=== PATIENT | female | born 1955 | race Caucasian/White ===

== ENCOUNTER 2020-03-25 10:44 | Observation (INO) ==
[2020-03-25] MEDS ORDERED: ASPIRIN CHEW 324 MG PO STA (11:06)
--- NOTE | 2020-03-25 11:17 | XRay Report ---
XR chest 1V portable HISTORY: Atypical Chest Pain COMPARISON: None. FINDINGS: The heart is mildly enlarged. No pneumothorax. Small bilateral pleural effusions. Bibasilar linear densities. No evidence for pulmonary edema. IMPRESSION: 1. Mild cardiomegaly. 2. Small bilateral pleural effusions. 3. Bibasilar linear densities. These are nonspecific but favor atelectasis. ACT 112: Negative or not required by law. Electronically signed by: Heladio Wyatt M.D. 03/25/2020 11:16 AM
[2020-03-25 11:27] LABS: Basophils # (auto) 0.01 K/uL (0-0.2); Basophils % (auto) 0.1 %; Eosinophils # (auto) 0.03 K/uL (0-0.5); Eosinophils % (auto) 0.4 %; Hematocrit (blood only) 34.3 % (37-47); Hemoglobin 11.3 g/dL (12.0-16.0); Immature Granulocytes # (auto) 0.06 K/uL (0.00-0.02); Immature Granulocytes % (auto) 0.9 %; Lymphocytes # (auto) 0.82 K/uL (1.2-3.4); Lymphocytes % (auto) 11.7 %; Mean Corpuscular Hemoglobin 31.8 pg (25-34); Mean Corpuscular Hgb Conc 32.9 g/dL (32-36); Mean Corpuscular Volume 96.6 fL (80-100); Mean Platelet Volume 9.5 fL (7.4-10.4); Monocytes # (auto) 0.73 K/uL (0.11-0.59); Monocytes % (auto) 10.4 %; Neutrophils # (auto) 5.37 K/uL (1.4-6.5); Neutrophils % (auto) 76.5 %; Platelet Count 476 K/uL (130-400); RDW Coefficient of Variation 13.2 % (11.5-14.5); RDW Standard Deviation 46.4 fL (36.4-46.3); Red Blood Count 3.55 M/uL (4.2-5.4); White Blood Count 7.02 K/uL (4.8-10.8)
[2020-03-25 11:37] LABS: Alanine Aminotransferase 44 U/L (12-78); Albumin Level 2.7 gm/dl (3.4-5.0); Aspartate Aminotransferase 24 U/L (15-37); BUN Creatinine Ratio 14.8 (10-20); Blood Urea Nitrogen 13 mg/dl (7-18); Calcium 9.1 mg/dl (8.5-10.1); Carbon Dioxide 23 mmol/L (21-32); Chloride 106 mmol/L (98-107); Creatinine Clr Calc Pharmacy 68.9 ml/min; Est GFR (African American) 78.9; Glucose 116 mg/dl (70-99); Lipase 171 U/L (73-393); Sodium 138 mmol/L (136-145)
[2020-03-25 11:42] LABS: Albumin Globulin Ratio 0.5 (0.9-2); Alkaline Phosphatase 239 U/L (45-117); Bilirubin,Total 0.4 mg/dl (0.2-1); INR 1.1 (0.9-1.1); Partial Thromboplastin Ratio 1.3; Partial Thromboplastin Time 35.3 Seconds (21.0-31.0); Prothrombin Time 11.3 Seconds (9.0-12.0); Total Protein 7.7 gm/dl (6.4-8.2); Troponin I < 0.015 ng/ml (0-0.045)
[2020-03-25] MEDS ORDERED: OPTIRAY 320 125ml IV PRN (11:58)
--- NOTE | 2020-03-25 12:12 | CT Scan Report ---
CT ANGIOGRAM OF THE CHEST CLINICAL HISTORY: Atypical chest pain. COMPARISON STUDY: Chest x-ray dated 03/25/2020. TECHNIQUE: Following the IV administration of 119 cc of Optiray 320, CT angiogram of the chest was pe rformed from the upper abdomen to the thoracic inlet utilizing the pulmonary embolus protocol. Images are reviewed in the axial, sagittal, and coronal planes. 3-D MIPS images are created and assessed. I V contrast was administered without complication. A dose lowering technique was utilized adhering to the principles of ALARA. CT DOSE: 406.76 mGycm FINDINGS: Thyroid: The right lobe of the thyroid is surgically absent. The left lobe appears mildly enlarged an d heterogeneous. Thoracic aorta: The thoracic aorta is normal in caliber and demonstrates standard 3-vessel arch anato my. No dissection is seen. Pulmonary vasculature: The pulmonary trunk is normal in caliber. There are no filling defects identif ied in main, lobar, or segmental pulmonary branches to suggest pulmonary embolus. Heart: The heart is enlarged noting a moderate pericardial effusion. Lungs and pleural spaces: Evaluation of the lung parenchyma is degraded by motion artifact. There are small right and moderate left pleural effusions with associated bibasilar consolidation. Segmental a telectasis is noted in the lingula. The trachea and central airways are clear. Mediastinum: There are calcified subcarinal nodes. No mediastinal adenopathy is identified. Edith: Clear. Axillae: There is no axillary lymphadenopathy. Upper abdomen: There is a small hiatal hernia. A calcified granuloma is seen in the spleen. Partially visualized upper abdominal viscera is otherwise grossly unremarkable. Skeletal structures: The skeletal structures are osteopenic. No lytic or blastic bony lesions are see n. Soft tissues: Postoperative change is noted in the right breast. IMPRESSION: 1. There is no evidence of pulmonary embolus in the main, lobar, or segmental pulmonary arteries. 2. Cardiomegaly and moderate pericardial effusion. 3. There are moderate left and small right pleural effusions with associated bibasilar consolidation. This likely represents atelectasis and clinical correlation will be required. 4. Additional findings as above. ACT 112: Negative or not required by law. Electronically signed by: Aguilar Mosquera M.D. 03/25/2020 12:11 PM
--- NOTE | 2020-03-25 12:43 | Electrocardiogram Report ---
Test Reason : Blood Pressure : / mmHG Vent. Rate : 093 BPM Atrial Rate : 093 BPM P-R Int : 124 ms QRS Dur : 080 ms QT Int : 328 ms P-R-T Axes : 031 082 020 degrees QTc Int : 407 ms Normal sinus rhythm Nonspecific T wave abnormality Inferior leads Abnormal ECG No previous ECGs available Confirmed by Jaspreet Denney ([id number]) on 03/25/2020 12:43:12 PM Referred By: Marcelo Cuellar Confirmed By:Jaspreet Denney
--- NOTE | 2020-03-25 13:51 | History & Physical Report ---
Date of Service March 25, 2020 Assessment & Plan (1) Chest pain: 64-year-old female with past medical history breast cancer presents by way of PCP referral for concerns of abnormal EKG seen as an outpatient, now here for chest pain rule out. Chest pain Admit to telemetry -CTA: There is no evidence of pulmonary embolus in the main, lobar, or segmental pulmonary arteries. Cardiomegaly and moderate pericardial effusion -EKG on arrival shows normal sinus rhythm, nonspecific T wave abnormality Inferior leads. Repeat daily Troponin on admission negative, will trend every 6 hours x2 Findings of less concern for ACS Morphine and nitroglycerin ordered as needed chest pain. Zofran as needed for nausea Echo ordered A1c and fasting lipid panel in a.m. Patient aspirin initiated in the ED. Continue 81 mg daily. Can calculate need for statin based on patient's ASCVD score after a.m. labs result Symptoms could resemble GERD, will start patient on p.o. Protonix 40 mg twice daily Pericardial effusion on CT scan - Check echo. - likely from radiation. check pain likely etiology from this. Cardiology consult Breast cancer -Patient recently completed 2-week course of radiation ending March 05, 2020 -Continue anastrozole 1 mg daily -Follows with Dr. Rouse of oncology FEN/GI: Heart healthy diet DVT prophylaxis: Lovenox SQ Full code Disposal: Admitted to telemetry. Likely discharge tomorrow History of Present Illness Chief Complaint: cp Primary Care Provider: Marcelo Cuellar DO 64-year-old female with past medical history breast cancer presents by way of PCP referral for concerns of abnormal EKG seen earlier today. Patient with no significant cardiac history and no significant family history of cardiac issues. Patient recently completed radiation therapy for breast cancer on March 05, 2020. The next day to March 06, 2020 she performed outdoor yard work and housework without issue. Early next morning around 2:30 AM patient woke up with midsternal chest pain. This episode described as sharp, nonradiating. 10 out of 10 pain. No known exacerbating or alleviating factors. No previous such occurrence like this ever before. At that time patient with associated nausea and fatigue, but otherwise denied any palpitations, diaphoresis, edema, syncope or near syncope, fever, vomiting, diarrhea, chills, cough, abdominal pain, lightheadedness/dizziness, urinary symptoms, recent travel or prolonged immobility, sick contacts. Since that incident patient notes feeling of ongoing pressure/burning sensation, but denies similar pain. Patient had noticed some shortness of breath with activities such as climbing stairs which is unusual for her. As result patient went to see PCP for the symptoms. EKG was obtained as an outpatient and noted to have T wave inversions on V4 and V5. Patient was sent to ER for further evaluation. At the time of my visit patient denies any chest pain. Patient with no other acute concerns or complaints. Pertinent labs: Largely unremarkable hemoglobin 11.3, PTT 35.3, glucose 116, alk phos 239, albumin 2.7, initial troponin negative EKG: Normal sinus rhythm. Nonspecific T wave abnormality Inferior leads CXR: Mild cardiomegaly. Small bilateral pleural effusions. Bibasilar linear densities. These are nonspecific but favor atelectasis. CTA: There is no evidence of pulmonary embolus in the main, lobar, or segmental pulmonary arteries. Cardiomegaly and moderate pericardial effusion. There are moderate left and small right pleural effusions with associated bibasilar consolidation. This likely represents atelectasis and clinical correlation will be required. ER course: P.o. aspirin 324 mg Family history: No significant cardiac history Social history: Patient denies any tobacco, alcohol, illicit drug use Allergies Allergy/AdvReac Type Severity Reaction Status Date / Time No Known Allergies Allergy Unverified 03/25/20 11:20 Home Medications Home Medications Medication Instructions Recorded Confirmed Type acetaminophen [Tylenol Extra 500 mg PO Q6H PRN 03/25/20 03/25/20 History Strength] anastrozole 1 mg PO DAILY 03/25/20 03/25/20 History colchicine [Colcrys] 0.6 mg PO QAM 14 Days #14 tab 03/26/20 Rx Past Med/Surg History Medical History Breast cancer No pertinent family history Surgical History H/O lumpectomy Social History Preferred Language: Japanese Communication Ability: 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 Beliefs That Will Affect Care: None Current Living Situation: Spouse Other Information That Helps Us Care for You: No Feels Safe at Home: Yes Safety Concerns: Feels Safe At This Time Smoking Status: Never smoker Do You Dip or Chew Tobacco: No ; Second Hand Exposure: No ; Tobacco Cessation Education Requested by Patient: No Hx Alcohol Use: No Hx Substance Use: No Review of Systems Review of Systems: All systems reviewed & are unremarkable except as noted in HPI & below Physical Exam Constitutional: WD/WN, vitals as above Eyes: PERRL, conjunctivae normal, anicteric sclerae ENMT: external ear and nose normal, oropharynx normal Respiratory: normal respiratory effort, lungs clear to auscultation Cardiovascular: RRR, no murmur, no edema Gastrointestinal (Abdomen): normal bowel sounds, soft, nontender, no hepatosplenomegaly Skin: no rashes, warm and dry Psychiatric: A+Ox3, euthymic affect Results & Data Results & Data ([facility]) Vital Signs (Past 12 Hours) Vital Signs Temp Pulse Pulse Resp BP BP Pulse Ox 03/25/20 13:30 83 18 150/87 H 97 03/25/20 12:24 78 18 151/96 H 98 03/25/20 11:30 86 22 149/79 H 96 03/25/20 11:00 98 H 18 159/90 H 96 03/25/20 10:55 36.8 C 96 H 17 188/98 H 98 Laboratory Results Laboratory Results - last 24 hr 03/25/20 03/25/20 03/25/20 11:05 11:05 11:05 WBC 7.02 RBC 3.55 L Hgb 11.3 L Hct 34.3 L MCV 96.6 MCH 31.8 MCHC 32.9 RDW Std Deviation 46.4 H RDW Coeff of Germain 13.2 Plt Count 476 H MPV 9.5 Immature Gran % (Auto) 0.9 Neut % (Auto) 76.5 Lymph % (Auto) 11.7 [place] % (Auto) 10.4 Eos % (Auto) 0.4 Baso % (Auto) 0.1 Neut # (Auto) 5.37 Lymph # (Auto) 0.82 L [place] # (Auto) 0.73 H Eos # (Auto) 0.03 Baso # (Auto) 0.01 Immature Gran # (Auto) 0.06 H PT 11.3 INR 1.1 APTT 35.3 H PTT Ratio 1.3 Sodium 138 Potassium 4.0 Chloride 106 Carbon Dioxide 23 Anion Gap 9.0 BUN 13 Creatinine 0.90 Est Cr Clr Drug Dosing 68.9 Est GFR ( Amer) 78.9 Est GFR (Non-Af Amer) 68.0 BUN/Creatinine Ratio 14.8 Glucose 116 H Calcium 9.1 Total Bilirubin 0.4 AST 24 ALT 44 Alkaline Phosphatase 239 H Troponin I < 0.015 Total Protein 7.7 Albumin 2.7 L Globulin 5.0 H Albumin/Globulin Ratio 0.5 L Lipase 171 Medications Administered Current Inpatient Medications Ioversol (Optiray 320 125ml) 119 ml IV ONCE PRN PRN Reason: Interaction Checking Stop: 03/29/20 11:57 Last Admin: 03/25/20 11:58 Dose: 119 ml Documented by: Code Status & VTE Plan Code Status Full Supervising Physician Co-Signing Physician Notes Resident Physician Supervision Note: I independently interviewed and examined the patient and verified the carcamo history and physical, reviewed labs and image studies, discussed the case with the resident Dr. Jessica and agree with the findings and care plan. Resident Activity Tracking Resident Involvement: Resident Care Provided Care Provided: Adult Hospital Medicine
--- NOTE | 2020-03-25 14:35 | Emergency Department Note ---
History of Present Illness General Chief Complaint: Cardiac Assessment Stated Complaint: EKG WAS ABNORMAL Time Seen by Provider: 03/25/20 10:53 History of Present Illness Provider Complaint: chest pain Onset (ago): day(s) 2 Duration: intermittent Onset: during rest Pain Location: substernal Pain Radiation: none Severity: mild Current Pain Intensity: 0 Quality: + dull and + other (Pressure) Relieved By: + nothing Exacerbated By: + nothing Context: no recent illness, no recent surgery, no recent immobilization, no recent travel, no trauma/injury and no history of DVT/PE Associated symptoms: + dyspnea; no diaphoresis, no syncope, no palpitations, no fever, no cough and no leg swelling 54-year-old female presented with chest pain or shortness of breath. Patient does have a history of breast cancer and did get radiation therapy. She states she recently stopped taking her estrogen therapy for her breast cancer. Patient reports she went to her PCPs office who sent her to the emergency department for an abnormal EKG. Home Medications Home Medications Medication Instructions Recorded Confirmed Type acetaminophen [Tylenol Extra 500 mg PO Q6H PRN 03/25/20 03/25/20 History Strength] anastrozole 1 mg PO DAILY 03/25/20 03/25/20 History Allergies Allergy/AdvReac Type Severity Reaction Status Date / Time No Known Allergies Allergy Unverified 03/25/20 11:20 Past Med/Surg History Medical History (Updated 03/25/20 @ 14:35 by Gurpreet Damon) Breast cancer No pertinent family history Surgical History (Updated 03/25/20 @ 14:31 by Gurpreet Damon) H/O lumpectomy Social History Preferred Language: Tunisian Communication Ability: Effective Hotel 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 Beliefs That Will Affect Care: None Current Living Situation: Spouse Other Information That Helps Us Care for You: No Feels Safe at Home: Yes Safety Concerns: Feels Safe At This Time Smoking Status: Never smoker Do You Dip or Chew Tobacco: No ; Second Hand Exposure: No ; Tobacco Cessation Education Requested by Patient: No Hx Alcohol Use: No Hx Substance Use: No Review of Systems A total of 10 systems reviewed and were otherwise negative Physical Exam Vital Signs Vital Signs - 24 hr 03/25/20 10:55 03/25/20 11:00 03/25/20 11:30 Temperature 36.8 C Temperature Source Oral Pulse Rate 96 H 98 H 86 Pulse Rate [Apical] Pulse Rate from SpO2 Sensor 86 Pulse Rhythm Regular Pulse Rhythm [Apical] Pulse Strength [Apical] Respiratory Rate 17 18 22 Respiratory Effort / Characteristics Non-Labored Spontaneous Respiratory Depth Normal Respiratory Pattern Regular Blood Pressure 188/98 H 159/90 H 149/79 H Blood Pressure [Left Arm] Blood Pressure Mean 124 118 105 Blood Pressure Mean [Left Arm] Pulse Oximetry 98 96 96 Oxygen Delivery Method Room Air Sepsis Recent Fever Within 48 Hours No Sepsis New/Unexplained Change in Mental Status No Sepsis Action Taken by Nursing No Action Required 03/25/20 12:24 03/25/20 13:30 Temperature Temperature Source Pulse Rate Pulse Rate [Apical] 78 83 Pulse Rate from SpO2 Sensor Pulse Rhythm Pulse Rhythm [Apical] Regular Regular Pulse Strength [Apical] Normal Respiratory Rate 18 18 Respiratory Effort / Characteristics Non-Labored Spontaneous Non-Labored Spontaneous Respiratory Depth Normal Normal Respiratory Pattern Regular Regular Blood Pressure Blood Pressure [Left Arm] 151/96 H 150/87 H Blood Pressure Mean Blood Pressure Mean [Left Arm] 114 108 Pulse Oximetry 98 97 Oxygen Delivery Method Room Air Room Air Sepsis Recent Fever Within 48 Hours Sepsis New/Unexplained Change in Mental Status Sepsis Action Taken by Nursing Physical Exam GENERAL: She is oriented to person, place, and time. She appears well-developed and well-nourished. She does not appear distressed. HENT: Exam performed. -Head: Normocephalic and atraumatic. -Right Ear: External ear normal. No mastoid tenderness. -Left Ear: External ear normal. No mastoid tenderness. -Mouth/Throat: The oropharynx is clear and moist. No trismus in the jaw. No dental abscesses or uvula swelling. No oropharyngeal exudate or tonsillar abscesses. EYES: Conjunctivae and EOM are normal. Pupils are equal, round, and reactive to light. Right eye exhibits no discharge. Left eye exhibits no discharge. No scleral icterus. NECK: Normal range of motion. Neck supple. No JVD present. No spinous process tenderness present. No carotid bruit present. No rigidity. No tracheal deviation and normal range of motion present. No Brudzinski's sign and no Kernig's sign noted. CV: Normal rate, regular rhythm, normal heart sounds and intact distal pulses. There is no peripheral edema. Palpable radial pulses bue. PULM/CHEST: Effort normal and breath sounds normal. No respiratory distress. No stridor. She has no wheezes. She has no rales. -Chest Wall: She exhibits no tenderness. ABD: The abdomen is soft. Bowel sounds are normal. She has no distension. No mass is present. There is no tenderness. There is no rebound, no guarding, no Mu rphy's sign and no tenderness at McBurney's point. Rovsig negative MUSC/SKEL: Normal range of motion. There is no peripheral edema, tenderness or deformity. LYMPH: No cervical adenopathy. NEURO: She is alert and oriented to person, place, and time. She has normal strength. No cranial nerve deficit or sensory deficit. Coordination and gait normal. GCS eye subscore is 4. GCS verbal subscore is 5. GCS motor subscore is 6. Cerebellar tests wnl. SKIN: Skin is warm and dry. She is not diaphoretic. PSYCH: She has a normal mood and affect. Behavior is normal. Judgment and thought content normal. Course Course 1100: The patient was evaluated in room B3. A complete history and physical exam was performed. Cardiac monitoring: An order was placed for continuous cardiac monitoring. The monitor shows a rate of 90 with sinus rhythm 1300: Vital signs stable. Labs and imaging within normal limits. Imaging does show small pericardial effusion, this is thought to be due to the patient's radiation therapy for breast cancer. Patient was offered inpatient observation versus outpatient follow-up for chest pain, patient elected to have inpatient observation for rule out ACS. [facility] team was consulted and agreed to the admission. Administered Medications Ioversol (Optiray 320 125ml) 119 ml IV ONCE PRN PRN Reason: Interaction Checking Stop: 03/29/20 11:57 Last Admin: 03/25/20 11:58 Dose: 119 ml Documented by: [id number] Discontinued Medications Aspirin (Aspirin) 324 mg PO NOW STA Stop: 03/25/20 11:07 Last Admin: 03/25/20 11:16 Dose: 324 mg Documented by: [id number] Medical Decision Making Laboratory Data Result diagrams: 03/25/20 11:05 03/25/20 11:05 Labs: Lab Results 03/25/20 03/25/20 03/25/20 Range/Units 11:05 11:05 11:05 WBC 7.02 (4.8-10.8) K/uL RBC 3.55 L (4.2-5.4) M/uL Hgb 11.3 L (12.0-16.0) g/dL Hct 34.3 L (37-47) % MCV 96.6 (80-100) fL MCH 31.8 (25-34) pg MCHC 32.9 (32-36) g/dL RDW Std Deviation 46.4 H (36.4-46.3) fL RDW Coeff of Germain 13.2 (11.5-14.5) % Plt Count 476 H (130-400) K/uL MPV 9.5 (7.4-10.4) fL Immature Gran % (Auto) 0.9 % Neut % (Auto) 76.5 % Lymph % (Auto) 11.7 % [place] % (Auto) 10.4 % Eos % (Auto) 0.4 % Baso % (Auto) 0.1 % Neut # (Auto) 5.37 (1.4-6.5) K/uL Lymph # (Auto) 0.82 L (1.2-3.4) K/uL [place] # (Auto) 0.73 H (0.11-0.59) K/uL Eos # (Auto) 0.03 (0-0.5) K/uL Baso # (Auto) 0.01 (0-0.2) K/uL Immature Gran # (Auto) 0.06 H (0.00-0.02) K/uL PT 11.3 (9.0-12.0) Seconds INR 1.1 (0.9-1.1) APTT 35.3 H (21.0-31.0) Seconds PTT Ratio 1.3 Sodium 138 (136-145) mmol/L Potassium 4.0 (3.5-5.1) mmol/L Chloride 106 (98-107) mmol/L Carbon Dioxide 23 (21-32) mmol/L Anion Gap 9.0 (3-11) BUN 13 (7-18) mg/dl Creatinine 0.90 (0.6-1.2) mg/dl Est Cr Clr Drug Dosing 68.9 ml/min Est GFR ( Amer) 78.9 Est GFR (Non-Af Amer) 68.0 BUN/Creatinine Ratio 14.8 (10-20) Glucose 116 H (70-99) mg/dl Calcium 9.1 (8.5-10.1) mg/dl Total Bilirubin 0.4 (0.2-1) mg/dl AST 24 (15-37) U/L ALT 44 (12-78) U/L Alkaline Phosphatase 239 H (45-117) U/L Troponin I < 0.015 (0-0.045) ng/ml Total Protein 7.7 (6.4-8.2) gm/dl Albumin 2.7 L (3.4-5.0) gm/dl Globulin 5.0 H (2.5-4.0) gm/dl Albumin/Globulin Ratio 0.5 L (0.9-2) Lipase 171 (73-393) U/L Imaging Data CT scan - chest: Radiologist's impression: CT ANGIOGRAM OF THE CHEST CLINICAL HISTORY: Atypical chest pain. COMPARISON STUDY: Chest x-ray dated 03/25/2020. TECHNIQUE: Following the IV administration of 119 cc of Optiray 320, CT angiogram of the chest was performed from the upper abdomen to the thoracic inlet utilizing the pulmonary embolus protocol. Images are reviewed in the axial, sagittal, and coronal planes. 3-D MIPS images are created and assessed. IV contrast was administered without complication. A dose lowering technique was utilized adhering to the principles of ALARA. CT DOSE: 406.76 mGycm FINDINGS: Thyroid: The right lobe of the thyroid is surgically absent. The left lobe appea rs mildly enlarged and heterogeneous. Thoracic aorta: The thoracic aorta is normal in caliber and demonstrates standard 3-vessel arch anatomy. No dissection is seen. Pulmonary vasculature: The pulmonary trunk is normal in caliber. There are no filling defects identified in main, lobar, or segmental pulmonary branches to suggest pulmonary embolus. Heart: The heart is enlarged noting a moderate pericardial effusion. Lungs and pleural spaces: Evaluation of the lung parenchyma is degraded by mot ion artifact. There are small right and moderate left pleural effusions with associated bibasilar consolidation. Segmental atelectasis is noted in the lingula. The trachea and central airways are clear. Mediastinum: There are calcified subcarinal nodes. No mediastinal adenopathy is identified. Edith: Clear. Axillae: There is no axillary lymphadenopathy. Upper abdomen: There is a small hiatal hernia. A calcified granuloma is seen in the spleen. Partially visualized upper abdominal viscera is otherwise grossly unremarkable. Skeletal structures: The skeletal structures are osteopenic. No lytic or blastic bony lesions are seen. Soft tissues: Postoperative change is noted in the right breast. IMPRESSION: 1. There is no evidence of pulmonary embolus in the main, lobar, or segmental pulmonary arteries. 2. Cardiomegaly and moderate pericardial effusion. 3. There are moderate left and small right pleural effusions with associated bibasilar consolidation. This likely represents atelectasis and clinical correlation will be required. 4. Additional findings as above. ACT 112: Negative or not required by law. Electronically signed by: Aguilar Mosquera M.D. 03/25/2020 12:11 PM Dictated: 03/25/20 1205 Transcribed: 03/25/201204 Chest x-ray: Radiologist's impression: XR chest 1V portable HISTORY: Atypical Chest Pain COMPARISON: None. FINDINGS: The heart is mildly enlarged. No pneumothorax. Small bilateral pleural effusions. Bibasilar linear densities. No evidence for pulmonary edema. IMPRESSION: 1. Mild cardiomegaly. 2. Small bilateral pleural effusions. 3. Bibasilar linear densities. These are nonspecific but favor atelectasis. ACT 112: Negative or not required by law. Electronically signed by: Heladio Wyatt M.D. 03/25/2020 11:16 AM Dictated: 03/25/20 1114 Transcribed: 03/25/20 1114 ECG Data Indication: chest pain Rate (beats per minute): 93 Rhythm: normal sinus Findings: no ST depression, no T-wave inversion and no ST elevation MDM Narrative 1100: The patient was evaluated in room B3. A complete history and physical exam was performed. Cardiac monitoring: An order was placed for continuous cardiac monitoring. The monitor shows a rate of 90 with sinus rhythm 1300: Vital signs stable. Labs and imaging within normal limits. Imaging does show small pericardial effusion, this is thought to be due to the patient's radiation therapy for breast cancer. Patient was offered inpatient observation versus outpatient follow-up for chest pain, patient elected to have inpatient observation for rule out ACS. [facility] hospitalist team was consulted and agreed to the admission. Impression & Plan Chest pain Discharge Plan Visit Data Chief Complaint: Cardiac Assessment Stated Complaint: EKG WAS ABNORMAL ED Provider: Gurpreet Damon Discharge Problem: Chest pain Patient Disposition: Being Evaluated by Hospitalist Forms Stand Alone Forms: My [facility] Prescriptions Prescriptions: No Action anastrozole 1 mg tablet 1 mg PO DAILY RF: 0 acetaminophen [Tylenol Extra Strength] 500 mg Tablet 500 mg PO Q6H PRN (Reason: Pain) RF: 0 Referrals Referrals: Marcelo Cuellar DO [Primary Care Provider] -
--- NOTE | 2020-03-25 16:07 | XCELERA ---
[id number]
[2020-03-25] MEDS ORDERED: ONDANSETRON INJ 2 MG/ML 2 ML VIAL IV PRN (16:32)
[2020-03-25] MEDS ORDERED: NITROGLYCERIN SL 0.4 MG/TAB TAB SL PRN (16:32)
[2020-03-25] MEDS ORDERED: MoRPHine SULFATE 2 MG/ML CARP IV PRN (16:32)
[2020-03-25] MEDS ORDERED: MAGNESIUM HYDROXIDE SUSP 30 ML UDC PO PRN (16:32)
[2020-03-25] MEDS: PANTOprazole 40 MG TAB PO SCH ×2 (17:30→21:16)
[2020-03-26 06:42] LABS: Basophils # (auto) 0.02 K/uL (0-0.2); Basophils % (auto) 0.3 %; Eosinophils # (auto) 0.09 K/uL (0-0.5); Eosinophils % (auto) 1.3 %; Hematocrit (blood only) 34.7 % (37-47); Hemoglobin 11.1 g/dL (12.0-16.0); Immature Granulocytes # (auto) 0.03 K/uL (0.00-0.02); Immature Granulocytes % (auto) 0.4 %; Lymphocytes # (auto) 0.85 K/uL (1.2-3.4); Mean Corpuscular Hemoglobin 31.2 pg (25-34); Mean Corpuscular Volume 97.5 fL (80-100); Mean Platelet Volume 9.6 fL (7.4-10.4); Monocytes # (auto) 0.71 K/uL (0.11-0.59); Neutrophils # (auto) 5.37 K/uL (1.4-6.5); Platelet Count 389 K/uL (130-400); RDW Coefficient of Variation 13.1 % (11.5-14.5); RDW Standard Deviation 46.8 fL (36.4-46.3); Red Blood Count 3.56 M/uL (4.2-5.4); White Blood Count 7.07 K/uL (4.8-10.8)
[2020-03-26 07:16] LABS: BUN Creatinine Ratio 17.4 (10-20); Calcium 8.8 mg/dl (8.5-10.1); Creatinine Clr Calc Pharmacy 66.3 ml/min; Est GFR (African American) 75.8; Est GFR (Non-African American) 65.4; Potassium 4.3 mmol/L (3.5-5.1)
[2020-03-26 08:49] LABS: Estimated Average Glucose 134 mg/dl; Hemoglobin A1C 6.3 % (4.5-5.6)
[2020-03-26] MEDS: PANTOprazole 40 MG TAB PO SCH (08:54)
[2020-03-26] MEDS ORDERED: ANASTROZOLE 1 MG TAB PO SCH (09:00)
[2020-03-26] MEDS ORDERED: ASPIRIN 81 MG ECTAB PO SCH (09:00)
[2020-03-26] MEDS ORDERED: ENOXAPARIN INJ 40 MG/0.4 ML SYR SQ SCH (09:00)
--- NOTE | 2020-03-26 09:59 | Cardiology Consultation ---
Date of Consultation This is a very pleasant 64-year-old female who does not look her stated age. She was treated at [facility] with radiation therapy for breast cancer. She underwent twice a day high-dose radiation therapy over a 5-day. Completing it on March 05. On the she awoke in the middle the night with mild substernal chest discomfort more of a stabbing-like sensation. She noted that she rolled over on her left side and improved and she went back to sleep and then she woke up later about an hour and a half or so with similar discomfort Over the last 2-1/2 weeks or so she has had a low intermittent low-grade fever she has had some shortness of breath with activity she has had some intermittent chest discomfort not necessarily associated with activity. Interestingly her chest discomfort is not worse lying flat and better sitting up as one would expect with typical pericarditis. She does note that she has some difficulty taking a deep breath. She denies any palpitations fluttering skips or feeling her heart racing she denies any orthopnea. She has any lower extremity edema. She has any symptoms of claudication. She has a cough, or Reiger's. She has had no sick contacts. The rest of a complete her systems otherwise negative March 26, 2020 History of Present Illness Attending Physician: Izabella Arevalo MD Allergies Allergy/AdvReac Type Severity Reaction Status Date / Time No Known Allergies Allergy Unverified 03/25/20 11:20 Home Medications Home Medications Medication Instructions Recorded Confirmed Type acetaminophen [Tylenol Extra 500 mg PO Q6H PRN 03/25/20 03/25/20 History Strength] anastrozole 1 mg PO DAILY 03/25/20 03/25/20 History Patient History Medical History Breast cancer No pertinent family history Surgical History H/O lumpectomy Social History Preferred Language: Lithuanian Communication Ability: Effective 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 Beliefs That Will Affect Care: None Current Living Situation: Spouse Other Information That Helps Us Care for You: No Feels Safe at Home: Yes Safety Concerns: Feels Safe At This Time Smoking Status: Never smoker Do You Dip or Chew Tobacco: No ; Second Hand Exposure: No ; Tobacco Cessation Education Requested by Patient: No Hx Alcohol Use: No Hx Substance Use: No Results & Data ([facility]) Vital Signs (Past 12 Hours) Vital Signs Temp Pulse Resp BP Pulse Ox 03/26/20 07:25 37.0 C 89 20 123/73 94 03/26/20 03:52 37.1 C 78 18 134/75 94 03/25/20 23:38 36.5 C 90 18 129/67 95 she is awake alert and oriented x3 she is no acute distress she is well- appearing female who looks younger than her stated age. HEENT 2+ carotid upstrokes no evidence of carotid bruits jugular is pressure was not elevated sclerae anicteric hearing is normal Lungs clear to station bilaterally no rales rhonchi or wheezing Heart regular rate and rhythm no appreciable murmurs rubs or gallops her heart sounds are not distant Abdomen soft nontender distended positive bowel sounds extremities no clubbing cyanosis or edema Psychiatric affect appeared appropriate Both her CAT scan report and images as well as her echocardiogram and images were reviewed EKG sinus rhythm nonspecific T wave changes no acute ST-T changes to suggest ischemia Troponins are negative x3 Impressions: 1. Postradiation inflammation of the pericardium as well as what appears to be the epicardial fat of her left ventricle. 2. Normal biventricular size and function 3. Bilateral pleural effusions greater on the left compared to the right 4. Breast cancer status post high-dose radiation therapy In reviewing her images clearly her pericardium is thickened at about 4 mm and looks like a rind. This is likely related to her previous radiation exposure. On the CAT scan we will was described as a pericardial effusion appears to be epicardial fat as the coronary arteries appear to be within this broad area of thickening. On her echocardiogram there is nothing to suggest pericardial fluid or pericardial effusion. The pericardium itself does appear thickened. There is no evidence of pericardial constriction based on her Doppler velocities. I made the following recommendations 1 colchicine 0.6 mg twice daily on day #1 and then daily thereafter. Hopefully colchicine will reduce the inflammation. She can go back to doing normal activity. I do not think this is related to coronary ischemia. We did discuss though that radiation can impact not only the pericardium but the myocardium, coronary arteries, and even her valves. I will see her in the office in 2 weeks time at that point we can determine the duration of her colchicine as well as when we will repeat her echocardiogram. All this was discussed with the patient her who was on the phone as well as the primary service
--- NOTE | 2020-03-26 10:04 | Discharge Summary ---
Date of Service March 26, 2020 Admission HPI Per Admitting Provider 64-year-old female with past medical history breast cancer presents by way of PCP referral for concerns of abnormal EKG seen earlier today. Patient with no significant cardiac history and no significant family history of cardiac issues. Patient recently completed radiation therapy for breast cancer on March 05, 2020. The next day to March 06, 2020 she performed outdoor yard work and housework without issue. Early next morning around 2:30 AM patient woke up with midsternal chest pain. This episode described as sharp, nonradiating. 10 out of 10 pain. No known exacerbating or alleviating factors. No previous such occurrence like this ever before. At that time patient with associated nausea and fatigue, but otherwise denied any palpitations, diaphoresis, edema, syncope or near syncope, fever, vomiting, diarrhea, chills, cough, abdominal pain, lightheadedness/dizziness, urinary symptoms, recent travel or prolonged immobility, sick contacts. Since that incident patient notes feeling of ongoing pressure/burning sensation, but denies similar pain. Patient had noticed some shortness of breath with activities such as climbing stairs which is unusual for her. As result patient went to see PCP for the symptoms. EKG was obtained as an outpatient and noted to have T wave inversions on V4 and V5. Patient was sent to ER for further evaluation. At the time of my visit patient denies any chest pain. Patient with no other acute concerns or complaints. Pertinent labs: Largely unremarkable hemoglobin 11.3, PTT 35.3, glucose 116, alk phos 239, albumin 2.7, initial troponin negative EKG: Normal sinus rhythm. Nonspecific T wave abnormality Inferior leads CXR: Mild cardiomegaly. Small bilateral pleural effusions. Bibasilar linear densities. These are nonspecific but favor atelectasis. CTA: There is no evidence of pulmonary embolus in the main, lobar, or segmental pulmonary arteries. Cardiomegaly and moderate pericardial effusion. There are moderate left and small right pleural effusions with associated bibasilar consolidation. This likely represents atelectasis and clinical correlation will be required. ER course: P.o. aspirin 324 mg Family history: No significant cardiac history Social history: Patient denies any tobacco, alcohol, illicit drug use Admission Exam Per Admitting Provider Constitutional: WD/WN, vitals as above Eyes: PERRL, conjunctivae normal, anicteric sclerae ENMT: external ear and nose normal, oropharynx normal Respiratory: normal respiratory effort, lungs clear to auscultation Cardiovascular: RRR, no murmur, no edema Gastrointestinal (Abdomen): normal bowel sounds, soft, nontender, no hepatosplenomegaly Skin: no rashes, warm and dry Psychiatric: A+Ox3, euthymic affect Principal Diagnosis Pericardial inflammation Discharge Exam Constitutional WD/WN, vitals as above cooperative Eyes + anicteric sclerae ENMT external ear and nose normal, oropharynx normal Neck normal visual inspection and trachea midline Respiratory normal respiratory effort, lungs clear to auscultation Auscultation: + diminished lung sounds (bilateral lung bases) Cardiovascular RRR, no murmur, no edema Heart Sounds: normal S1 and normal S2 Extremities: no pedal edema Gastrointestinal (Abdomen) normal bowel sounds, soft, nontender, no hepatosplenomegaly Skin no rashes, warm and dry Psychiatric A+Ox3, euthymic affect Discharge Data Allergies Allergy/AdvReac Type Severity Reaction Status Date / Time No Known Allergies Allergy Unverified 03/25/20 11:20 Consultations 03/25/20 12:57 ED Decision to Admit Stat Ordered Studies 03/25/20 11:07 CT angio chest PE protocol Stat Hospital Course (1) Chest pain: 64-year-old female with past medical history breast cancer presents by way of PCP referral for concerns of abnormal EKG seen as an outpatient, now here for chest pain rule out. 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 She was admitted for chest pain rule out. Troponin x 3 was undetectable. EKG showed no signs of ischemia. Chest CTA ruled out pulmonary embolism, but did show bilateral pleural effusions and a pericardial effusion. Echocardiogram showed normal LV systolic function, EF 65- 70%, without wall motion abnormalities and no pericardial effusion. The pericardium was noted to be thickened to 4mm on the echo, but without constriction. In the setting of a recent 2 week course of radiation, patient's chest pain was felt to be containers sales representative of radiation-induced pericardial inflammation. Patient was started on colchicine and a follow up visit with cardiology was made for her in 2 weeks time, at which time she will have a repeat echocardiogram to assess for resolution of the inflammation. Of note, she did have a lipid panel drawn in the hospital which showed a total cholesterol of 148, LDL of 96, HDL of 30 with a ratio of 5. HbA1c was elevated to 6.3. 10 year ASCVD risk was calculated to be 4/7% (low). Outpatient items to do: family life counselor patient on prediabetes. based on 10 year ASCVD risk, there does not appear to be an indication for statin or ASA therapy. Breast cancer Patient recently completed 2-week course of radiation ending March 05, 2020 for breast cancer. -Continue anastrozole 1 mg daily Total Time Total Time Spent Total Time Spent (In Minutes): see attending attestation Discharge Plan Discharge Items Patient Disposition: Home - Self-Care Reason For Visit: CHEST PAIN Discharge Diagnosis: Chest pain Activity: Resume your previous activity Non-emergency contact: Primary Care Provider and Portrait Photographer Call non-emergency contact if: your symptoms worsen Follow-up/Referrals: Marcelo Cuellar DO [Primary Care Provider] - Diet: Heart Healthy Addtl Attending Provider Instructions: You were hospitalized at [facility] for evaluation of chest pain that began two days after finishing your radiation regimen. Initially, there was concern that your chest pain represented a heart attack, however your blood work, EKG and echocardiogram (US of your heart) showed no evidence that you had suffered a heart attack. As for the cause of your chest pain, it appears as though it was inflammation of your pericardium, which is the sac lining your heart. The inflammation was most likely caused by the radiation therapy you recently underwent. The treatment for this condition is colchicine 0.6mg, by mouth, twice day for 1 day, and then once daily thereafter. Colchicine is an an ti-inflammably agent. A follow-up visit has been arranged for you with Dr. Davis, the lead refinery supervisor who evaluated you in the hospital, in two weeks time. Please attend this appointment. At this visit, you will have a repeat echocardiogram done to check to see if the inflammation in your pericardium has resolved. You have no activity restrictions at this time. Pending Studies at Discharge: No Stand-Alone Forms: My [facility], Smoking Cessation Medications and DC Order Prescriptions: New colchicine [Colcrys] 0.6 mg Tablet 0.6 mg PO QAM 14 Days Qty: 14 RF: 0 Continued anastrozole 1 mg tablet 1 mg PO DAILY RF: 0 acetaminophen [Tylenol Extra Strength] 500 mg Tablet 500 mg PO Q6H PRN (Reason: Pain) RF: 0 Discharge Orders: Discharge Order (Routine); Ordered 03/26/20 Ordered By: Blaire Puga/Other Patient Handouts: Prediabetes, A1C Admission Data Admit Date/Time: 03/25/20 13:47 Attending Provider: Izabella Arevalo Admit Provider: Izabella Arevalo Primary Care Provider: Marcelo Cuellar Other Providers: Marcelo Matamoros Other Interventions: Discharge Summary Assessment (RN) Last Done: 03/26/20 10:00 DC Date/Time DO NOT enter until pt leaves facility: 03/26/20 12:09 Supervising Physician Co-Signing Physician Notes Resident Physician Supervision Note: I independently interviewed and examined the patient and verified the carcamo history and physical, reviewed labs and image studies, discussed the case with the resident Dr. Coronel and agree with the findings and care plan. Resident Activity Tracking Resident Involvement: Resident Care Provided Care Provided: Adult Hospital Medicine
[2020-03-26] MEDS ORDERED: COLCHICINE 0.6 MG TAB PO SCH (10:15)
[2020-03-27] MEDS ORDERED: COLCHICINE 0.6 MG TAB PO SCH (09:00)
== END 2020-03-26 12:09 | disposition home or self-care (01) ==
LOC: 2S 10:44 → ED 10:44 → 2S 16:12